=== PATIENT | female | born 1980 | race Caucasian/White ===

== ENCOUNTER 2021-12-18 21:37 | Observation (INO) ==
[2021-12-18] MEDS ORDERED: 0.9 % Sodium Chloride 1,000 ML IVC ONE (22:15)
[2021-12-18 22:24] LABS: Basophils % 0.6 %; Eosinophils # 0.1 K/mcL (0.0-0.6); Eosinophils % 1.3 %; Hematocrit 38.8 % (35.3-44.9); Immature Granulocytes % 0.6 % (0-4); Lymphocytes # 1.4 K/mcL (0.6-4.6); Lymphocytes % 20.3 %; Mean Corpuscular HGB Conc 36.1 g/dL (31.6-35.5); Mean Corpuscular Hemoglobin 37.8 pg (28.0-33.3); Mean Corpuscular Volume 104.9 fL (83.0-100.0); Mean Platelet Volume 9.9 fL (9.4-12.4); Neutrophils # 4.3 K/mcL (1.6-8.9); Platelet Count 260 K/mcL (140-400); Red Cell Distribution Width 13.7 % (11.5-14.5); Segmented Neutrophils % 62.2 %; White Blood Count 6.9 K/mcL (4.3-11.1)
[2021-12-18 22:46] LABS: Alanine Aminotransferase 37 Units/L (7-52); Albumin 3.8 g/dL (3.5-5.7); Albumin/Globulin Ratio 1.3 (1.1-2.2); Alkaline Phosphatase 212 Units/L (34-104); Aspartate Amino Transferase 73 Units/L (13-39); BUN/Creatinine Ratio 13 (6-26); Bilirubin,Total 3.2 mg/dL (0.3-1.0); Blood Urea Nitrogen 5 mg/dL (6-20); Carbon Dioxide 37 mEq/L (23-29); Chloride 85 mEq/L (98-107); Glucose 145 mg/dL (70-105); Magnesium 0.9 mg/dL (1.6-2.6); Osmolality,Calculated 280 (280-300); Potassium 2.1 mEq/L (3.5-5.1); Sodium 135 mEq/L (136-145); Total Protein 6.8 g/dL (6.4-8.9); eGFR For African Americans > 60 (> 60); eGFR For Non-African Americans > 60 (> 60)
[2021-12-18] MEDS ORDERED: Isovue-370 500 ML BOTTLE IVP ONE (23:26)
[2021-12-18] MEDS ORDERED: 0.9 % Sodium Chloride 250 ML ONE (23:37)
[2021-12-18 23:49] LABS: Bilirubin,Direct 1.5 mg/dL (0.0-0.2)
[2021-12-18 23:56] LABS: Thyroid Stimulating Hormone 6.925 mcIU/mL (0.340-5.600)
[2021-12-19] MEDS ORDERED: 0.9 % Sodium Chloride 500 ML ONE (00:58)
[2021-12-19] MEDS ORDERED: Ondansetron ODT 4 MG TAB.RAPDIS SL PRN (01:48)
[2021-12-19] MEDS ORDERED: Naloxone 0.4 MG/ML INJ IVP PRN (01:48)
[2021-12-19] MEDS ORDERED: Melatonin 3 MG TABLET PO PRN (01:48)
[2021-12-19] MEDS ORDERED: *HR* LORazepam 2 MG/ML VIAL IVP PRN ×3 (01:54)
[2021-12-19 02:21] LABS: Prothrombin Time 11.5 Seconds (9.4-12.1)
[2021-12-19 02:24] LABS: Activated Partial Thrombo Time 23.5 Seconds (26.0-36.0)
[2021-12-19 04:15] LABS: Basophils # 0.1 K/mcL (0.0-0.2); Basophils % 0.9 %; Eosinophils # 0.1 K/mcL (0.0-0.6); Eosinophils % 1.3 %; Hematocrit 34.4 % (35.3-44.9); Immature Granulocytes % 0.7 % (0-4); Lymphocytes % 17.1 %; Mean Corpuscular HGB Conc 35.2 g/dL (31.6-35.5); Mean Corpuscular Hemoglobin 37.3 pg (28.0-33.3); Mean Corpuscular Volume 106.2 fL (83.0-100.0); Mean Platelet Volume 9.9 fL (9.4-12.4); Monocytes # 0.8 K/mcL (0.0-1.3); Monocytes % 13.7 %; Neutrophils # 3.7 K/mcL (1.6-8.9); Platelet Count 241 K/mcL (140-400); Red Blood Count 3.24 M/mcL (3.82-4.97); Red Cell Distribution Width 13.9 % (11.5-14.5); Segmented Neutrophils % 66.3 %; White Blood Count 5.5 K/mcL (4.3-11.1)
[2021-12-19 04:19] LABS: Hemoglobin 12.1 g/dL (11.5-15.4)
[2021-12-19 04:34] LABS: Troponin I < 0.03 ng/mL (< 0.04)
[2021-12-19 04:49] LABS: Alanine Aminotransferase 29 Units/L (7-52); Albumin/Globulin Ratio 1.4 (1.1-2.2); Alkaline Phosphatase 148 Units/L (34-104); Aspartate Amino Transferase 62 Units/L (13-39); BUN/Creatinine Ratio 11 (6-26); Bilirubin,Direct 1.3 mg/dL (0.0-0.2); Bilirubin,Indirect 1.4 mg/dL (0.0-1.0); Bilirubin,Total 2.7 mg/dL (0.3-1.0); Blood Urea Nitrogen 4 mg/dL (6-20); Calcium 6.8 mg/dL (8.6-10.3); Carbon Dioxide 34 mEq/L (23-29); Chloride 93 mEq/L (98-107); Globulin 2.2 g/dL (2.4-3.5); Glucose 106 mg/dL (70-105); Magnesium 1.3 mg/dL (1.6-2.6); Osmolality,Calculated 285 (280-300); Potassium 2.2 mEq/L (3.5-5.1); Sodium 139 mEq/L (136-145); Total Protein 5.2 g/dL (6.4-8.9); eGFR For African Americans > 60 (> 60); eGFR For Non-African Americans > 60 (> 60)
[2021-12-19 04:58] LABS: Folate 1.6 ng/mL (3.0-16.0)
[2021-12-19 06:10] LABS: Hepatitis B Surface Antigen Nonreactive (Nonreactive)
[2021-12-19 06:38] LABS: Hepatitis C Virus Antibody Nonreactive (Nonreactive)
[2021-12-19 06:41] LABS: Hepatitis A Antibody IgM Nonreactive (Nonreactive); Hepatitis B Core IgM Nonreactive (Nonreactive)
[2021-12-19] MEDS: Folic Acid 1 MG TABLET PO SCH (07:41)
[2021-12-19] MEDS: Thiamine (B-1) 100 MG TABLET PO SCH (07:41)
[2021-12-19] MEDS: Vitamin B Complex/Vit C/Vit E 1 EACH TABLET PO SCH (07:41)
[2021-12-19] MEDS: Ringers Solution, Lactated 1,000 ML IVC SCH ×2 (07:42→15:55)
[2021-12-19 08:17] LABS: Bilirubin,Urine Small (Negative); Blood,Urine Large (Negative); Clarity,Urine Slightly Cloudy (Clear); Color,Urine Yellow (Yellow); Glucose,Urine (UA) Normal (Normal); Ketones,Urine Negative (Negative); Leukocyte Esterase,Urine Negative (Negative); Nitrite,Urine Positive (Negative); PH,Urine 7.5 pH Units (5.0-8.0); Protein,Urine 30 mg/dL (Neg-Trace); Urobilinogen,Urine Normal (Normal)
[2021-12-19 08:18] LABS: Potassium,Urine 8.1 mEq/L; Sodium, Urine 28.7 mEq/L
[2021-12-19 08:21] LABS: RBC,Urine 15-30 per hpf (0-3)
[2021-12-19 08:22] LABS: Bacteria,Urine Moderate per hpf (None-Few); WBC,Urine 0-3 per hpf (0-3)
[2021-12-19 08:39] LABS: Influenza A PCR Negative (Negative); Influenza B PCR Negative (Negative); Resp. Syncytial Virus PCR Negative (Negative)
[2021-12-19 08:40] LABS: SARS-CoV-2 by PCR (In House) Negative (Negative)
[2021-12-19 11:10] LABS: Adenovirus F 40/41 PCR Not detected (Not detect); Astrovirus PCR Not detected (Not detect); C.difficile Toxin A/B Gene PCR Not detected (Not detect); Campylobacter by PCR Not detected (Not detect); Cryptosporidium by PCR Not detected (Not detect); Cyclospora cayetanensis PCR Not detected (Not detect); E. coli O157 by PCR Not detected (Not detect); Entamoeba histolytica PCR Not detected (Not detect); Enteroaggregative E.coli(EAEC) Not detected (Not detect); Enteropathogenic E.coli(EPEC) Not detected (Not detect); Enterotoxigenic E.coli (ETEC) Not detected (Not detect); Giardia lamblia PCR Not detected (Not detect); Norovirus GI/GII PCR Not detected (Not detect); Plesiomonas shigelloides PCR Not detected (Not detect); Rotavirus A PCR Not detected (Not detect); Salmonella PCR Not detected (Not detect); Sapovirus PCR Not detected (Not detect); Shig/EnteroinvasiveE coli EIEC Not detected (Not detect); Shigalike tox-prod E coli STEC Not detected (Not detect); Vibrio PCR Not detected (Not detect); Vibrio cholerae PCR Not detected (Not detect); Yersinia enterocolitica PCR Not detected (Not detect)
[2021-12-19 11:37] LABS: BUN/Creatinine Ratio 13 (6-26); Blood Urea Nitrogen 4 mg/dL (6-20); Calcium 6.9 mg/dL (8.6-10.3); Carbon Dioxide 32 mEq/L (23-29); Chloride 94 mEq/L (98-107); Glucose 94 mg/dL (70-105); Magnesium 1.9 mg/dL (1.6-2.6); Osmolality,Calculated 279 (280-300); Potassium 2.3 mEq/L (3.5-5.1); Sodium 136 mEq/L (136-145); eGFR For African Americans > 60 (> 60); eGFR For Non-African Americans > 60 (> 60)
[2021-12-19 17:46] LABS: BUN/Creatinine Ratio 9 (6-26); Blood Urea Nitrogen 3 mg/dL (6-20); Calcium 7.1 mg/dL (8.6-10.3); Carbon Dioxide 30 mEq/L (23-29); Chloride 97 mEq/L (98-107); Glucose 97 mg/dL (70-105); Osmolality,Calculated 282 (280-300); Potassium 2.5 mEq/L (3.5-5.1); Sodium 138 mEq/L (136-145); eGFR For African Americans > 60 (> 60); eGFR For Non-African Americans > 60 (> 60)
[2021-12-19] MEDS ORDERED: Potassium Chloride 40 MEQ in D5% in 0.9% NACL 1,000 ML IVC SCH (19:00)
[2021-12-20 04:58] LABS: Basophils # 0.1 K/mcL (0.0-0.2); Basophils % 1.3 %; Eosinophils # 0.1 K/mcL (0.0-0.6); Eosinophils % 2.4 %; Hematocrit 30.3 % (35.3-44.9); Immature Granulocytes % 0.5 % (0-4); Lymphocytes # 0.8 K/mcL (0.6-4.6); Mean Corpuscular HGB Conc 33.3 g/dL (31.6-35.5); Mean Corpuscular Hemoglobin 36.6 pg (28.0-33.3); Mean Corpuscular Volume 109.8 fL (83.0-100.0); Mean Platelet Volume 9.7 fL (9.4-12.4); Monocytes # 0.6 K/mcL (0.0-1.3); Monocytes % 15.1 %; Neutrophils # 2.2 K/mcL (1.6-8.9); Platelet Count 239 K/mcL (140-400); Red Blood Count 2.76 M/mcL (3.82-4.97); Red Cell Distribution Width 14.3 % (11.5-14.5); Segmented Neutrophils % 58.7 %; White Blood Count 3.8 K/mcL (4.3-11.1)
[2021-12-20 05:06] LABS: Alanine Aminotransferase 28 Units/L (7-52); Albumin 2.7 g/dL (3.5-5.7); Albumin/Globulin Ratio 1.4 (1.1-2.2); Alkaline Phosphatase 132 Units/L (34-104); Aspartate Amino Transferase 67 Units/L (13-39); BUN/Creatinine Ratio 11 (6-26); Bilirubin,Total 1.6 mg/dL (0.3-1.0); Blood Urea Nitrogen 3 mg/dL (6-20); Calcium 6.8 mg/dL (8.6-10.3); Carbon Dioxide 28 mEq/L (23-29); Chloride 101 mEq/L (98-107); Glucose 90 mg/dL (70-105); Magnesium 1.8 mg/dL (1.6-2.6); Osmolality,Calculated 286 (280-300); Phosphorous 1.8 mg/dL (2.7-4.5); Potassium 2.9 mEq/L (3.5-5.1); Sodium 140 mEq/L (136-145); Total Protein 4.7 g/dL (6.4-8.9); eGFR For African Americans > 60 (> 60); eGFR For Non-African Americans > 60 (> 60)
[2021-12-20 05:07] LABS: Hemoglobin 10.1 g/dL (11.5-15.4)
[2021-12-20 07:19] VITALS: TEMP 98.7
[2021-12-20] MEDS: Thiamine (B-1) 100 MG TABLET PO SCH (07:37)
[2021-12-20] MEDS: Vitamin B Complex/Vit C/Vit E 1 EACH TABLET PO SCH (07:37)
[2021-12-20] MEDS: Folic Acid 1 MG TABLET PO SCH (07:37)
[2021-12-20] MEDS ORDERED: Lidocaine -MPF 2% 5 ML VIAL ONE (09:27)
[2021-12-20 11:15] LABS: BUN/Creatinine Ratio 7 (6-26); Blood Urea Nitrogen 2 mg/dL (6-20); Carbon Dioxide 30 mEq/L (23-29); Chloride 102 mEq/L (98-107); Glucose 85 mg/dL (70-105); Magnesium 1.7 mg/dL (1.6-2.6); Osmolality,Calculated 283 (280-300); Sodium 139 mEq/L (136-145); eGFR For African Americans > 60 (> 60); eGFR For Non-African Americans > 60 (> 60)
[2021-12-20 11:35] VITALS: BP 109/73; PULSE 99; O2SAT 97
== END 2021-12-20 14:23 | disposition home or self-care (01) ==
LOC: 3BNU 21:37 → EMEROOARM 21:37 → SUATTDRO 12-19 01:23 → 3BNU 12-19 02:39
PROVIDERS: ADMIT Internal Medicine; ATTEND Internal Medicine